=== PATIENT | male | born 1990 | race Two or more races ===

== ENCOUNTER 2022-11-20 04:26 | Emergency (ER) | payer BC ==
[2022-11-20 05:25] LABS: Absolute Lymphocytes (CBC) 2.9 K/uL (0.7-4.9); Hematocrit 40.1 % (39.6-49.0); Lymphocytes % 21.7 % (15.3-44.8); MCV 78.2 fL (80-100); RBC Red Blood Cell Count 5.13 M/uL (4.33-5.43)
[2022-11-20 05:43] LABS: Albumin 3.6 g/dL (3.4-5.0); Bilirubin Total 0.4 mg/dL (0.2-1.0); Potassium 3.3 mmol/L (3.5-5.1); Protein, Total 7.8 g/dL (6.4-8.2)
[2022-11-20] MEDS ORDERED: metroNIDAZOLE 500 MG TABLET ONE (05:45)
[2022-11-20] MEDS ORDERED: CIPROFLOXACIN HCL 500 MG TAB ONE (05:45)
--- NOTE | 2022-11-20 06:54 | ER ---
Nurse's Notes [facility] Name: Corky Yen Age: 32 yrs Sex: Male : 1990 Arrival Date: 11/20/2022 Time: 04:29 Bed 5 Private MD: Diagnosis: Rectal pain and bleeding Presentation: 11/20 04:40 Chief complaint: Patient states: hemorrhoidal pain x 1 week reports bleeding yesterday. Coronavirus screen: Vaccine status: Patient reports receiving the 2nd dose of the covid vaccine. Ebola Screen: Patient negative for fever greater than or equal to 101.5 degrees Fahrenheit, and additional compatible Ebola Virus Disease symptoms. Initial Sepsis Screen: Does the patient meet any 2 criteria? HR > 90 bpm. Does the patient have a suspected source of infection? No. Patient's initial sepsis screen is negative. Risk Assessment: Do you want to hurt yourself or someone else? Patient reports no desire to harm self or others. Onset of symptoms was November 14, 2022. 04:40 Method Of Arrival: Ambulatory 04:40 Acuity: LUCIO 3 kl Triage Assessment: 04:43 General: Appears distressed, uncomfortable, well groomed, well developed, Behavior is kl anxious. Pain: Complains of pain in recal pain Pain currently is 10 out of 10 on a pain scale. at worst was 10 out of 10 on a pain scale. EENT: No deficits noted. No signs and/or symptoms were reported regarding the EENT system. Neuro: No deficits noted. [place] Agitation-Sedation Scale (RASS):. Cardiovascular: No deficits noted. Respiratory: No deficits noted. GI: Reports hemorrhoids. : No deficits noted. No signs and/or symptoms were reported regarding the genitourinary system. Historical: - Allergies: 04:42 Ibuprofen; kl - PMHx: 04:42 PTSD; Bipolar disorder; Anxiety; Migraine; kl - PSHx: 04:42 Cholecystectomy; kl - Immunization history:: Adult Immunizations up to date. - Social history:: Smoking status: Patient denies any tobacco usage or history of. Screenin:[address] [facility] ED Fall Risk Assessment (Adult) History of falling in the last 3 months, kl including since admission No falls in past 3 months (0 pts) Confusion or Disorientation No (0 pts) Intoxicated or Sedated No (0 pts) Impaired Gait No (0 pts) Mobility Assist Device Used No (0 pt) Altered Elimination No (0 pt) Score/Fall Risk Level 0 - 2 = Low Risk Oriented to surroundings, Maintained a safe environment, Educated pt \T\ family on fall prevention, incl call for assistance when getting out of bed. Abuse screen: Denies threats or abuse. Nutritional screening: No deficits noted. Tuberculosis screening: No symptoms or risk factors identified. Assessment: 05:02 General: Appears distressed, uncomfortable, Behavior is anxious. Vital Signs: 04:40 BP 142 / 99; Pulse 114; Resp 18; Temp 100.8; Pulse Ox 96% ; Weight 143.79 kg (M); kl Height 6 ft. 2 in. (187.96 cm); Pain 10/10; 05:44 BP 122 / 67; Pulse 78; Pulse Ox 99% on R/A; kl 06:59 BP 100 / 65; kl 04:40 Body Mass Index 40.70 (143.79 kg, 187.96 cm) ED Course: 04:29 Patient arrived in ED. ag3 04:37 Jerald Rahman MD is Attending Physician. kdr 04:42 Triage completed. kl 05:02 Inserted saline lock: 20 gauge in right antecubital area, using aseptic technique. Blood collected. 05:09 CBC with Diff Sent. kl 05:09 CMP Sent. kl 05:09 Lipase Sent. kl 06:13 CT Abd/Pelvis - IV Contrast Only In Process Unspecified. EDMS 06:51 Davin Licona MD is Referral Physician. kdr 07:10 No provider procedures requiring assistance completed. IV discontinued, intact, kl bleeding controlled, No redness/swelling at site. Pressure dressing applied. 07:10 Arm band placed on. kl 07:10 Patient has correct armband on for positive identification. kl Administered Medications: 05:45 Drug: Flagyl (metroNIDAZOLE) 500 mg Route: PO; aa9 06:05 Follow up: Response: No adverse reaction aa9 06:11 Follow up: Response: No adverse reaction kl 05:45 Drug: Cipro (ciprofloxacin) 500 mg Route: PO; aa9 06:05 Follow up: Response: No adverse reaction aa9 06:11 Follow up: Response: No adverse reaction kl Medication: 07:10 VIS not applicable for this client. Outcome: 06:53 Discharge ordered by . kdr 07:09 Discharged to home ambulatory. gris 07:09 Condition: improved 07:09 Discharge instructions given to patient, Instructed on discharge instructions, follow up and referral plans. medication usage, Demonstrated understanding of instructions, follow-up care, medications, Prescriptions given X 3. 07:10 Patient left the ED. gris Signatures: Dispatcher [employer] EDCristela Montaño RN RN Jerald Paz MD MD kdr Gomez, Alice ag3 Zaira Talamantes, RN RN aa9
--- NOTE | 2022-11-20 06:54 | EDPHYS ---
Physician Documentation [facility] Name: Corky Yen Age: 32 yrs Sex: Male : 1990 Arrival Date: 11/20/2022 Time: 04:29 Bed 5 Private MD: ED Physician Jerald Rahman HPI: 11/20 04:58 This 32 yrs old Unknown Male presents to ER via Ambulatory with complaints of Rectal kdr Bleeding. 04:58 The patient presents to the emergency department with bleeding from the rectum/anus, kdr that is moderate, pain in the rectal area, that is moderate, that is severe. Onset: The symptoms/episode began/occurred 1 week(s) ago. Context: the patient has a known history of hemorrhoids. Modifying factors: The symptoms are alleviated by nothing, The symptoms are aggravated by bowel movement, movement, sitting position. Associate signs and symptoms: Pertinent positives: fever, lower GI bleeding, in toilet bowl, Pertinent negatives: abdominal pain, constipation, diarrhea, dysuria. The patient has had pain and management issues with hemorrhoids for about 10 years. Over the last week he has had pain and yesterday, had what he thought to be foul smelling purulent discharge from his rectum. He has tried various common remedies over the past years without resolution of the issues. He has sought treatment from his PCP in the past but never a surgeon. The patient has not recently seen a physician. Historical: - Allergies: 04:42 Ibuprofen; kl - PMHx: 04:42 PTSD; Bipolar disorder; Anxiety; Migraine; kl - PSHx: 04:42 Cholecystectomy; kl - Immunization history:: Adult Immunizations up to date. - Social history:: Smoking status: Patient denies any tobacco usage or history of. ROS: 04:58 Constitutional: Negative for measured fever, chills, and weight loss, he has had kdr subjective chills and fever with general mailaise for the past week Eyes: Negative for injury, pain, redness, and discharge, Neck: Negative for injury, pain, and swelling, Cardiovascular: Negative for chest pain, palpitations, and edema, Respiratory: Negative for shortness of breath, cough, wheezing, and pleuritic chest pain, Back: Negative for injury and pain, : Negative for injury, bleeding, discharge, and swelling, MS/Extremity: Negative for injury and deformity, Skin: Negative for injury, rash, and discoloration, Neuro: Negative for headache, weakness, numbness, tingling, and seizure activity. Psych: Negative for depression, anxiety, suicide ideation, homicidal ideation, and hallucinations, Allergy/Immunology: Negative for hives, rash, and allergies, Endocrine: Negative for neck swelling, polydipsia, polyuria, polyphagia, and marked weight changes, Hematologic/Lymphatic: Negative for swollen nodes, abnormal bleeding, and unusual bruising. 04:58 Abdomen/GI: Positive for abdominal pain, rectal pain, rectal bleeding, Purulent rectal discharge yesterday. Exam: 05:05 Constitutional: This is a well developed, well nourished patient who is awake, alert, kdr and in no acute distress. Head/Face: Normocephalic, atraumatic. Eyes: Pupils equal round and reactive to light, extra-ocular motions intact. Lids and lashes normal. Conjunctiva and sclera are non-icteric and not injected. Cornea within normal limits. Periorbital areas with no swelling, redness, or edema. Neck: Trachea midline, no thyromegaly or masses palpated, and no cervical lymphadenopathy. Supple, full range of motion without nuchal rigidity, or vertebral point tenderness. No Meningismus. Chest/axilla: Normal chest wall appearance and motion. Nontender with no deformity. No lesions are appreciated. Cardiovascular: Regular rate and rhythm with a normal S1 and S2. No gallops, murmurs, or rubs. Normal PMI, no JVD. No pulse deficits. Respiratory: Lungs have equal breath sounds bilaterally, clear to auscultation and percussion. No rales, rhonchi or wheezes noted. No increased work of breathing, no retractions or nasal flaring. Skin: Warm, dry with normal turgor. Normal color with no rashes, no lesions, and no evidence of cellulitis. MS/ Extremity: Pulses equal, no cyanosis. Neurovascular intact. Full, normal range of motion. Neuro: Awake and alert, GCS 15, oriented to person, place, time, and situation. Cranial nerves II-XII grossly intact. Motor strength 5/5 in all extremities. Sensory grossly intact. Cerebellar exam normal. Normal gait. Psych: Awake, alert, with orientation to person, place and time. Behavior, mood, and affect are within normal limits. 05:05 Abdomen/GI: Inspection: obese Bowel sounds: active, Palpation: nontender, in all quadrants, rebound tenderness, is not appreciated, Rectal exam: hemorrhoid(s), are not appreciated, with pain, There were no visible hemorrhoids externally. he was diffusely tender circumferentially but without clearly noted indurated tissue. Vital Signs: 04:40 BP 142 / 99; Pulse 114; Resp 18; Temp 100.8; Pulse Ox 96% ; Weight 143.79 kg (M); kl Height 6 ft. 2 in. (187.96 cm); Pain 10/10; 05:44 BP 122 / 67; Pulse 78; Pulse Ox 99% on R/A; kl 06:59 BP 100 / 65; kl 04:40 Body Mass Index 40.70 (143.79 kg, 187.96 cm) kl MDM: 06:53 Patient medically screened. kdr 07:57 Data reviewed: vital signs, nurses notes, lab test result(s), radiologic studies. kdr Consideration of Admission/Observation Patient was admitted/placed on observation. Escalation of care including admission/observation considered. Management of patient was discussed with the following: Telephone Quotation Clerk: Monae. I considered the following discharge prescriptions or medication management in the emergency department Medications were administered in the Emergency Department. See MAR. ED course: The patient was discharged in good condition and was happy with the care provided and the plan for discharge and follow-up tomorrow with Dr. Licona. 11/20 04:37 Order name: CBC with Diff; Complete Time: 06:42 kdr 11/20 04:37 Order name: CMP; Complete Time: 06:42 kdr 11/20 04:37 Order name: Lipase; Complete Time: 06:42 kdr 11/20 04:55 Order name: CT Abd/Pelvis - IV Contrast Only kdr 11/20 04:37 Order name: IV Saline Lock; Complete Time: 05:02 kdr 11/20 04:37 Order name: Labs collected and sent; Complete Time: 05:02 kdr Administered Medications: 05:45 Drug: Flagyl (metroNIDAZOLE) 500 mg Route: PO; aa9 06:05 Follow up: Response: No adverse reaction aa9 06:11 Follow up: Response: No adverse reaction 05:45 Drug: Cipro (ciprofloxacin) 500 mg Route: PO; aa9 06:05 Follow up: Response: No adverse reaction aa9 06:11 Follow up: Response: No adverse reaction kl Disposition Summary: 11/20/22 06:53 Discharge Ordered Location: Home kdr Problem: an ongoing problem kdr Symptoms: have improved kdr Condition: Stable kdr Diagnosis - Rectal pain and bleeding kdr Followup: kdr - With: Davin Licona MD - When: Tomorrow - Reason: If symptoms return, Further diagnostic work-up, Recheck today's complaints, Continuance of care, Re-evaluation by your physician Discharge Instructions: - Discharge Summary Sheet kdr Forms: - Medication Reconciliation Form kdr - Thank You Letter kdr - Antibiotic Education kdr - Prescription Opioid Use kdr Prescriptions: - Cipro 500 mg Oral Tablet - take 1 tablet by ORAL route every 12 hours for 10 days; 20 tablet; Refills: 0, kdr Product Selection Permitted - Flagyl 500 mg Oral Tablet - take 1 tablet by ORAL route every 6 hours for 10 days; 40 tablet; Refills: 0, kdr Product Selection Permitted - Tramadol 50 mg Oral Tablet - take 1 tablet by ORAL route every 8 hours as needed; 12 tablet; Refills: 0, kdr Product Selection Permitted - Anusol-HC 25 mg Rectal Suppository - insert 1 suppository by RECTAL route every 12 hours As needed; 20 suppository; kdr Refills: 0, Product Selection Permitted Signatures: Dispatcher [employer] Cristela Morfin, RN Jerald Araujo MD MD kdr Avalos, Aylin RN RN aa9
[2022-11-20 07:33] VITALS: TEMP 100.8
[2022-11-20 07:34] VITALS: O2SAT 99
[2022-11-20 07:35] VITALS: BP 100/65
--- NOTE | 2022-11-20 10:28 | RAD REPORT ---
EXAM DESCRIPTION: CT - Abdomen Pelvis W Contrast - 11/20/2022 6:57 am CLINICAL HISTORY: The patient is 32 years old and is Male; rectal pain, bleeding and purulent discha rge TECHNIQUE: Axial computed tomography images of the abdomen and pelvis with intravenous contrast. S agittal and coronal reformatted images were created and reviewed. This CT exam was performed using one or more of the following dose reduction techniques: automated exposure control, adjustment of t he mA and/or kV according to patient size, and/or use of iterative reconstruction technique. COMPARISON: No relevant prior studies available. FINDINGS: Lung bases: Unremarkable. No mass. No consolidation. ABDOMEN: Liver: Unremarkable. No mass. Gallbladder and bile ducts: Gallbladder is not seen. No ductal dilation. Pancreas: Unremarkable. No mass. No ductal dilation. Spleen: Unremarkable. No splenomegaly. Adrenals: Unremarkable. No mass. Kidneys and ureters: Unremarkable. No solid mass. No hydronephrosis. Stomach and bowel: Unremarkable. No obstruction. No mucosal thickening. PELVIS: Appendix: No findings to suggest acute appendicitis. Bladder: Unremarkable.. Reproductive: Unremarkable as visualized. ABDOMEN and PELVIS: Intraperitoneal space: Unremarkable. No free air. No significant fluid collection. Bones/joints: No acute fracture. No dislocation. Soft tissues: Unremarkable. Vasculature: Unremarkable. No abdominal aortic aneurysm. Lymph nodes: Unremarkable. No enlarged lymph nodes. IMPRESSION: No acute finding in the abdomen/pelvis. Electronically signed by: Lauri Perkins MD 11/20/2022 6:29 AM PLUG MAKING OPERATOR Due to temporary technical issues with the PACS/Fluency reporting system, reports are being signed by the in house radiologists without review as a courtesy to insure prompt reporting. The interpreting radiologist is fully responsible for the content of the report.
== END 2022-11-20 07:10 | disposition home or self-care (01) ==
LOC: ER 04:26
DX: K62.5 Hemorrhage of anus and rectum (principal); Z88.6 Allergy status to analgesic agent
CPT/HCPCS: 85025; 36415; 83690; 80053; 74177; Q9967; 99284

== ENCOUNTER 2022-12-21 08:36 | Emergency (ER) | payer BC ==
--- OUTSIDE RECORDS SUMMARY | 2022-12-21 08:40 | XMS REPORT | Continuity of Care Document ---
:1990 Author Organization [facility] t Address [address] [place] [address] Care Team Providers Name Role Phone SUSAN MICHEL Attending Clinician Unavailable Problems This patient has no known problems. Allergies, Adverse Reactions, Alerts This patient has no known allergies or adverse reactions. Medications This patient has no known medications. Procedures This patient has no known procedures. Encounters Start End Encounter Admission Attending Care Care Encounter Source Date/Time Date/Time Type Type Clinicians Facility Department ID 2022-11-30 2022-11-30 Outpatient REBECCA MICHEL [address] 07:15:00 23:59:00 [facility] Results This patient has no known results.
[2022-12-21 09:26] LABS: Absolute Lymphocytes (CBC) 2.5 K/uL (0.7-4.9); Hematocrit 40.6 % (39.6-49.0); Lymphocytes % 26.2 % (15.3-44.8); MPV 6.8 fL (7.6-11.3); RBC Red Blood Cell Count 5.28 M/uL (4.33-5.43)
[2022-12-21 09:48] LABS: Urine Blood Negative (Negative); Urine Glucose Negative (Negative); Urine Protein Negative (Negative)
[2022-12-21 09:53] LABS: Albumin 3.7 g/dL (3.4-5.0); Bilirubin Total 0.4 mg/dL (0.2-1.0); Potassium 3.8 mmol/L (3.5-5.1); Protein, Total 7.7 g/dL (6.4-8.2)
--- NOTE | 2022-12-21 10:21 | RAD REPORT ---
EXAM DESCRIPTION: CTAbdomen Pelvis W Contrast - 12/21/2022 10:04 am CLINICAL HISTORY: Abdominal pain. ABD PAIN COMPARISON: Abdomen Pelvis W Contrast dated 11/20/2022 TECHNIQUE: Biphasic CT imaging of the abdomen and pelvis was performed with 100 ml non-ionic IV cont rast. All CT scans are performed using dose optimization technique as appropriate and may include automated exposure control or mA/KV adjustment according to patient size. FINDINGS: The lung bases are clear. The liver, spleen, pancreas, adrenal glands and kidneys are within normal limits. Cholecystectomy. No bowel obstruction, free air, free fluid or abscess. The appendix is normal. No evidence of signi ficant lymphadenopathy. No suspicious bony findings. IMPRESSION: No acute intra-abdominal or pelvic finding.
--- NOTE | 2022-12-21 11:06 | EDPHYS ---
Physician Documentation [facility] Name: Corky Yen Age: 32 yrs Sex: Male : 1990 Arrival Date: 12/21/2022 Time: 08:39 Bed DIS2 Private MD: ED Physician Henrique Ko HPI: 12/21 11:02 This 32 yrs old Male presents to ER via Ambulatory with complaints of Abdominal Pain. sp3 11:02 32-year-old male history of bipolar disease, PTSD, migraine history, anxiety, status sp3 postcholecystectomy presents to the ED with chief complaint right-sided abdominal pain hours after taking medications with orange juice after drinking a large milkshake. Patient's symptoms are mainly improved however he came in for general precautions. He denies any nausea, vomiting, diarrhea, fever, URI symptoms, chest pain, shortness of breath, skin symptoms, syncope, near syncope, focal neurodeficit, or any other symptoms at this time.. Historical: - Allergies: 09:02 Ibuprofen; jl7 - Home Meds: 09:02 lamotrigine 200 mg oral tab 1 tab once daily [Active]; amitriptyline 50 mg Oral tab 1 jl7 tab once daily [Active]; lithium carbonate 600 mg Oral cap [Active]; levocetirizine 5 mg oral tab 1 tab once daily [Active]; Sumatriptan Sub-Q [Active]; - PMHx: 09:02 Anxiety; Bipolar disorder; Migraine; PTSD; jl7 - PSHx: 09:02 Cholecystectomy; jl7 - Immunization history:: Client reports receiving the 2nd dose of the Covid vaccine. - Social history:: Smoking status: Patient denies any tobacco usage or history of. ROS: 11:03 Constitutional: Negative for fever, chills, and weight loss, Eyes: Negative for injury, sp3 pain, redness, and discharge, ENT: Negative for injury, pain, and discharge, Neck: Negative for injury, pain, and swelling, Cardiovascular: Negative for chest pain, palpitations, and edema, Respiratory: Negative for shortness of breath, cough, wheezing, and pleuritic chest pain, Back: Negative for injury and pain, MS/Extremity: Negative for injury and deformity, Skin: Negative for injury, rash, and discoloration, Neuro: Negative for headache, weakness, numbness, tingling, and seizure, Psych: Negative for depression, anxiety, suicide ideation, homicidal ideation, and hallucinations, Allergy/Immunology: Negative for hives, rash, and allergies, Endocrine: Negative for neck swelling, polydipsia, polyuria, polyphagia, and marked weight changes. 11:03 All other systems are negative. Exam: 11:04 Constitutional: This is a well developed, well nourished patient who is awake, alert, sp3 and in no acute distress. Head/Face: Normocephalic, atraumatic. Eyes: Pupils equal round and reactive to light, extra-ocular motions intact. Lids and lashes normal. Conjunctiva and sclera are non-icteric and not injected. Cornea within normal limits. Periorbital areas with no swelling, redness, or edema. Neck: Trachea midline, no thyromegaly or masses palpated, and no cervical lymphadenopathy. Supple, full range of motion without nuchal rigidity, or vertebral point tenderness. No Meningismus. Chest/axilla: Normal chest wall appearance and motion. Nontender with no deformity. No lesions are appreciated. Cardiovascular: Regular rate and rhythm with a normal S1 and S2. No gallops, murmurs, or rubs. Normal PMI, no JVD. No pulse deficits. Respiratory: Lungs have equal breath sounds bilaterally, clear to auscultation and percussion. No rales, rhonchi or wheezes noted. No increased work of breathing, no retractions or nasal flaring. Abdomen/GI: Soft, non-tender, with normal bowel sounds. No distension or tympany. No guarding or rebound. No evidence of tenderness throughout. Back: No spinal tenderness. No costovertebral tenderness. Full range of motion. Skin: Warm, dry with normal turgor. Normal color with no rashes, no lesions, and no evidence of cellulitis. MS/ Extremity: Pulses equal, no cyanosis. Neurovascular intact. Full, normal range of motion. Neuro: Awake and alert, GCS 15, oriented to person, place, time, and situation. Cranial nerves II-XII grossly intact. Motor strength 5/5 in all extremities. Sensory grossly intact. Cerebellar exam normal. Normal gait. Vital Signs: 09:00 BP 142 / 89; Pulse 89; Resp 17; Temp 97.9; Pulse Ox 99% on R/A; Weight 145.15 kg; jl7 Height 6 ft. 2 in. (187.96 cm); Pain 8/10; 09:00 Body Mass Index 41.09 (145.15 kg, 187.96 cm) jl7 MDM: 09:25 Patient medically screened. sp3 11:04 Data reviewed: vital signs, nurses notes, lab test result(s), radiologic studies. ED sp3 course: 32-year-old male with right-sided abdominal pain. Differential diagnosis includes appendicitis, gastritis, colitis, kidney stone, UTI, among others including functional abdominal pain. Patient is currently pain-free. CT scan demonstrates no significant abnormality laboratory values are within normal limits. Urine is also normal. Given this normal work-up and patient's resolution of symptoms, we will safely discharge patient home with general precautions, bland diet and follow-up with PCP. Patient acknowledges and is thankful for his care.. 12/21 09:08 Order name: CBC with Diff; Complete Time: 10:44 sp3 12/21 09:08 Order name: CMP; Complete Time: 10:44 sp3 12/21 09:08 Order name: Lipase; Complete Time: 10:44 sp3 12/21 09:08 Order name: CT Abd/Pelvis - IV Contrast Only; Complete Time: 10:44 sp3 12/21 09:08 Order name: IV Saline Lock; Complete Time: 09:33 sp3 12/21 09:48 Order name: Urine Dipstick-Ancillary; Complete Time: 10:44 EDMS 12/21 09:08 Order name: Labs collected and sent; Complete Time: 09:33 sp3 12/21 09:08 Order name: Urine Dipstick-Ancillary (obtain specimen); Complete Time: 09:54 sp3 Administered Medications: No medications were administered Disposition Summary: 12/21/22 11:05 Discharge Ordered Location: Home sp3 Condition: Stable sp3 Diagnosis - Abdominal pain, unspecified sp3 Followup: sp3 - With: Private Physician - When: Upon discharge from the Emergency Department - Reason: If symptoms return Discharge Instructions: - Discharge Summary Sheet sp3 - Abdominal Pain, Adult sp3 Forms: - Medication Reconciliation Form sp3 - Thank You Letter sp3 - Antibiotic Education sp3 - Prescription Opioid Use sp3 Signatures: Dispatcher [employer] Brissa Villatoro RN RN jl7 Henrique Ko, MD sp3
--- NOTE | 2022-12-21 11:06 | ER ---
Nurse's Notes [facility] Name: Corky Yen Age: 32 yrs Sex: Male : 1990 Arrival Date: 12/21/2022 Time: 08:39 Bed DIS2 Private MD: Diagnosis: Abdominal pain, unspecified Presentation: 12/21 09:00 Chief complaint: Patient states: RUQ pain after bending over sink last night and felt a jl7 pop; reports nausea, denies diarrhea, possible constipation unknown last BM; also severe migraine since last night. Coronavirus screen: Vaccine status: Patient reports receiving the 2nd dose of the covid vaccine. At this time, the client does not indicate any symptoms associated with coronavirus-19. Ebola Screen: No symptoms or risks identified at this time. Initial Sepsis Screen: Does the patient meet any 2 criteria? No. Patient's initial sepsis screen is negative. Does the patient have a suspected source of infection? No. Patient's initial sepsis screen is negative. Risk Assessment: Do you want to hurt yourself or someone else? Patient reports no desire to harm self or others. Onset of symptoms was December 20, 2022. 09:00 Method Of Arrival: Ambulatory jl7 09:00 Acuity: LUCIO 3 jl7 Triage Assessment: 09:02 General: Appears in no apparent distress. uncomfortable, Behavior is cooperative, jl7 anxious. Pain: Complains of pain in right upper quadrant Pain currently is 8 out of 10 on a pain scale. GI: Reports constipation, nausea, Patient currently denies diarrhea, vomiting. Historical: - Allergies: 09: Ibuprofen; jl7 - Home Meds: 09: lamotrigine 200 mg oral tab 1 tab once daily [Active]; amitriptyline 50 mg Oral tab 1 jl7 tab once daily [Active]; lithium carbonate 600 mg Oral cap [Active]; levocetirizine 5 mg oral tab 1 tab once daily [Active]; Sumatriptan Sub-Q [Active]; - PMHx: 09:02 Anxiety; Bipolar disorder; Migraine; PTSD; jl7 - PSHx: 09:02 Cholecystectomy; jl7 - Immunization history:: Client reports receiving the 2nd dose of the Covid vaccine. - Social history:: Smoking status: Patient denies any tobacco usage or history of. Screenin:31 [facility] ED Fall Risk Assessment (Adult) History of falling in the last 3 months, ss including since admission No falls in past 3 months (0 pts). Abuse screen: Denies threats or abuse. Denies injuries from another. Nutritional screening: No deficits noted. Tuberculosis screening: Never had TB. Assessment: 11:31 General: Appears in no apparent distress. comfortable, Behavior is calm, cooperative. ss Neuro: Level of Consciousness is awake, alert, obeys commands. Respiratory: Airway is patent Respiratory effort is even, unlabored, Respiratory pattern is regular, symmetrical. Derm: Skin is intact, is healthy with good turgor, Skin is pink, warm \T\ dry. normal. Vital Signs: 09:00 BP 142 / 89; Pulse 89; Resp 17; Temp 97.9; Pulse Ox 99% on R/A; Weight 145.15 kg; jl7 Height 6 ft. 2 in. (187.96 cm); Pain 8/10; 09:00 Body Mass Index 41.09 (145.15 kg, 187.96 cm) jl7 ED Course: 08:39 Patient arrived in ED. rg4 08:43 Henrique Ko MD is Attending Physician. sp3 09:02 Triage completed. jl7 09:02 Arm band placed on right wrist. jl7 09:35 Initial lab(s) drawn, by ED staff, sent to lab. Inserted saline lock: 20 gauge in right jl7 Blood collected. Inserted by Jay MONSIVAIS. 10:08 CT Abd/Pelvis - IV Contrast Only In Process Unspecified. EDNC 11:10 Ling Chu, NICOLÁS is Primary Nurse. ss 11:31 Patient has correct armband on for positive identification. ss 11:31 No provider procedures requiring assistance completed. Patient did not have IV access ss during this emergency room visit. Administered Medications: No medications were administered Medication: 11:31 VIS not applicable for this client. ss Outcome: 11:05 Discharge ordered by . sp3 11:31 Discharged to home ambulatory. ss 11:31 Condition: good 11:31 Discharge instructions given to patient, Instructed on discharge instructions, follow up and referral plans. Demonstrated understanding of instructions, follow-up care. 11:32 Patient left the ED. ss Signatures: Dispatcher [employer] EDNC Ling Chu RN RN Ariadna Zepeda rg4 Brissa Bhatia RN RN jl7 Henrique Ko, MD sp3
[2022-12-21 11:49] VITALS: BP 142/89; TEMP 97.9; O2SAT 99
== END 2022-12-21 11:32 | disposition home or self-care (01) ==
LOC: ER 08:36
DX: R10.31 Right lower quadrant pain (principal); F31.9 Bipolar disorder, unspecified; Z88.6 Allergy status to analgesic agent
CPT/HCPCS: 85025; 36415; 81003; 83690; 80053; 74177; 99283; Q9967

== ENCOUNTER 2024-03-29 14:44 | Emergency (ER) | payer BC ==
--- OUTSIDE RECORDS SUMMARY | 2024-03-29 14:48 | XMS REPORT | Continuity of Care Document ---
Author Name Unknown Address [address] [place] [address] Larry. [address] [place], [place] [id number] [facility] thconnect Address [address] [facility]. [address] [place] [address] Care Team Providers Care Cash Register Operator Name Role Phone SUSAN MICHEL Attending Clinician Unava ilable Encounters Start Date/Time End Date/Time Encounter Type Admission Type Attending Clinicians Care Facility Care Department Encounter ID Source 2022-11-30 07:15:00 2022-11-30 23:59:00 Outpatient SUS[address] MIC[address]
[2024-03-29] MEDS ORDERED: CEFTRIAXONE 1000 MG/VIAL ONE ×2 (15:10→15:26)
[2024-03-29] MEDS ORDERED: dexAMETHasone 10 MG/ML VIAL ONE (15:10)
[2024-03-29] MEDS ORDERED: LIDOCAINE 1% MPF 2 ML AMPULE ONE (15:10)
[2024-03-29] MEDS ORDERED: AMOX/K CLAV 875 MG TAB ONE (15:12)
[2024-03-29] MEDS ORDERED: NA CHLORIDE 0.9% 1,000 ML ONE (15:26)
[2024-03-29 15:53] LABS: SARS-CoV-2 Antigen CONTROL BLUE LINE VIS/BG OK; SARS-CoV-2 Antigen Rapid Res Negative (Negative)
[2024-03-29 16:27] LABS: Absolute Basophils 0.1 K/uL (0-0.5); Absolute Eosinophils 0.2 K/uL (0-0.5); Absolute Lymphocytes (CBC) 2.2 K/uL (0.7-4.9); Absolute Monocytes 0.5 K/uL (0.1-1.3); Absolute Neutrophil 7.1 K/uL (1.8-8.0); Basophils % 0.9 % (0-1.3); Hematocrit 39.8 % (39.6-49.0); Hemoglobin 12.9 g/dL (13.6-17.9); Lymphocytes % 22.1 % (15.3-44.8); MCH 25.1 pg (27.0-35.0); MCHC 32.5 g/dL (32.0-36.0); MCV 77.1 fL (80-100); MPV 7.2 fL (7.6-11.3); Nucleated Red Blood Cells % 0.1 % (0-0); Platelets 425 thou/uL (152-406); RBC Red Blood Cell Count 5.17 M/uL (4.33-5.43); Red Cell Distribution Width 15.1 % (12.1-15.2)
[2024-03-29 16:38] LABS: Albumin 3.3 g/dL (3.4-5.0); Albumin/Globulin Ratio 0.7 (1.1-1.8); Anion Gap 9.6 mEq/L (5.0-15.0); Bilirubin Total 0.3 mg/dL (0.2-1.0); Globulin 4.6 g/dL (2.3-3.5); Potassium 3.6 mEq/L (3.5-5.1); Protein, Total 7.9 g/dL (6.4-8.2)
--- NOTE | 2024-03-29 17:15 | RAD REPORT ---
EXAM DESCRIPTION: CT - Soft Tissue Neck W/Contr CLINICAL HISTORY: SWELLING COMPARISON: No comparisons TECHNIQUE All CT scans are performed using dose optimization technique as appropriate and may includ e automated exposure control or mA/KV adjustment according to patient size. FINDINGS: Nasopharyngeal tissues are normal in appearance. Fossa Rosenmller are normal. Enlarged uvula which is edematous. Generalized tonsillar hypertrophy. The airway is patent. No fluid collections identified. No prevertebral or parapharyngeal edema. Epiglottis and aryepiglottic folds are normal. Piriform sinuses are well aerated. The vocal cords are normal in appearance. Salivary glands are normal in appearance. Upper lung palomino are clear. Included intracranial contents are unremarkable. IMPRESSION: Tonsillar hypertrophy and enlarged uvula without fluid collection or significant airway compromise.
--- NOTE | 2024-03-29 18:29 | ER ---
Nurse's Notes [facility] Name: Corky Yen Age: 34 yrs Sex: Male : 1990 Arrival Date: 03/29/2024 Time: 14:44 Bed 12 Private MD: Diagnosis: Acute pharyngitis due to other specified organism;Acute pharyngitis, unspecified-ACUTE UVELITIS;Influenza due to other identified influenza virus with pneumonia-INFLUENZA B Presentation: 03/29 14:53 Chief complaint: Patient states: "I've had a throat infection for the last month and aa5 I've been on multiple antibiotics and today my uvula is swollen". 14:53 Coronavirus screen: sore throat. Ebola Screen: Patient denies travel to an [facility] Ebola-affected area in the 21 days before illness onset. Initial Sepsis Screen: Does the patient meet any 2 criteria? No. Patient's initial sepsis screen is negative. Does the patient have a suspected source of infection? No. Patient's initial sepsis screen is negative. Risk Assessment: Do you want to hurt yourself or someone else? Patient reports no desire to harm self or others. Onset of symptoms was 2023. 14:53 Acuity: LUCIO 3 aa5 14:53 Method Of Arrival: Ambulatory aa5 Historical: - Allergies: 14:54 Ibuprofen; aa5 - PMHx: 14:54 Anxiety; Bipolar disorder; Migraine; PTSD; aa5 - PSHx: 14:54 Cholecystectomy; aa5 - Immunization history:: Adult Immunizations up to date. - Infectious Disease History:: Denies. - Social history:: Smoking status: Patient denies any tobacco usage or history of. Screenin:02 [facility] ED Fall Risk Assessment (Adult) History of falling in the last 3 months, as6 including since admission No falls in past 3 months (0 pts) Confusion or Disorientation No (0 pts) Intoxicated or Sedated No (0 pts) Impaired Gait No (0 pts) Mobility Assist Device Used No (0 pt) Altered Elimination No (0 pt) Score/Fall Risk Level 0 - 2 = Low Risk Oriented to surroundings, Maintained a safe environment, Educated pt \\T\\ family on fall prevention, incl call for assistance when getting out of bed, Assessed \\T\\ reinforced patient's understanding of fall precautions. Abuse screen: Denies threats or abuse. Denies injuries from another. Nutritional screening: No deficits noted. Tuberculosis screening: No symptoms or risk factors identified. Assessment: 15:20 General: Appears in no apparent distress. Behavior is calm, cooperative. Pain: as6 Complains of pain in throat Quality of pain is described as burning. Neuro: Level of Consciousness is awake, alert, obeys commands, Oriented to person, place, time, situation. Cardiovascular: Capillary refill < 3 seconds Patient's skin is warm and dry. Respiratory: Airway is patent Trachea midline Respiratory effort is even, unlabored, Respiratory pattern is regular, symmetrical. GI: No deficits noted. No signs and/or symptoms were reported involving the gastrointestinal system. : No deficits noted. No signs and/or symptoms were reported regarding the genitourinary system. EENT: Throat enlarged uvula. Reports nasal congestion nasal discharge. Derm: Skin is intact, is healthy with good turgor. Musculoskeletal: Circulation, motion, and sensation intact. 18:26 Reassessment: Patient appears in no apparent distress at this time. Patient and/or as6 family updated on plan of care and expected duration. Pain level reassessed. Patient is alert, oriented x 3, equal unlabored respirations, skin warm/dry/pink. Patient states feeling better. Vital Signs: 14:53 BP 141 / 87; Pulse 94; Resp 20 S; Temp 98.3(O); Pulse Ox 98% on R/A; Weight 149.69 kg aa5 (R); Height 6 ft. 2 in. (R); 16:00 BP 135 / 88; Pulse 84; Resp 15 S; Pulse Ox 97% on R/A; as6 17:00 BP 132 / 92; Pulse 83; Resp 17 S; Pulse Ox 98% on R/A; as6 18:27 BP 133 / 93; Pulse 85; Resp 16 S; Pulse Ox 100% on R/A; as6 14:53 Body Mass Index 42.37 (149.69 kg, 187.96 cm) aa5 ED Course: 14:48 Patient arrived in ED. ts1 14:53 Arm band placed on. aa5 14:55 Triage completed. aa5 14:56 Mike King, NICOLÁS is Primary Nurse. as6 15:01 Balta Maldonado MD is Attending Physician. gurvinder 16:12 CBC with Diff Sent. as6 16:12 Comprehensive Metabolic Panel Sent. as6 16:14 Inserted saline lock: 20 gauge in right antecubital area, using aseptic technique. as6 Blood collected. 16:29 Bed in low position. Call light in reach. as6 17:02 CT Soft Tissue Neck W/contr In Process Unspecified. EDMS 18:27 Milady Cosby MD is Referral Physician. [facility] 18:44 Provided Education on: rx teaching, follow up with ENT. as6 18:45 No provider procedures requiring assistance completed. IV discontinued, intact, as6 bleeding controlled, No redness/swelling at site. Pressure dressing applied. Administered Medications: 15:14 CANCELLED (Duplicate Order): dexamethasone 10 mg IM once gurvinder 15:14 CANCELLED (Duplicate Order): rocephin (ceftriaxone)1 grams IM once gurvinder 15:22 Drug: Amoxicillin-Clavulanate PO 875 mg PO once Route: PO; as6 18:24 Follow up: Response: No adverse reaction as6 15:22 Drug: Dexamethasone IM 10 mg IM once Route: IM; Site: right deltoid; as6 18:25 Follow up: Response: No adverse reaction as6 15:22 Drug: Rocephin (cefTRIAXone) IM 1 grams IM once Route: IM; Site: right vastus lateralis;as6 18:25 Follow up: Response: No adverse reaction as6 15:23 CANCELLED (Duplicate Order): rocephin2 grams IV at per protocol once; Given slow IV gruvinder push per pharmarcy instructions 15:23 CANCELLED (Duplicate Order): Decadron - [id number] mg IVP once [facility] 15:52 Drug: NS 0.9% IV 1000 ml IV at 1 bolus Per protocol; 1000 mL bolus Route: IV; Rate: 1 as6 bolus; Site: right antecubital; 18:24 Follow up: Response: No adverse reaction; IV Status: Completed infusion; IV Intake: as6 1000ml 15:52 Drug: Rocephin IV 1 grams IV at per protocol once; Given slow IV push per pharmacy as6 instructions Route: IV; Rate: per protocol; Site: right antecubital; 18:25 Follow up: Response: No adverse reaction; IV Status: Completed infusion; IV Intake: 24teit7 18:44 Drug: Oseltamivir PO 75 mg PO once Route: PO; as6 18:44 Follow up: Response: Medication administered at discharge. as6 18:44 Drug: AZITHromycin PO 1 grams PO once Route: PO; as6 18:44 Follow up: Response: Medication administered at discharge. as6 Medication: 16:29 VIS not applicable for this client. as6 Intake: 18:24 IV: 1000ml; Total: 1000ml. as6 18:25 IV: 10ml; Total: 1010ml. as6 Outcome: 18:28 Discharge ordered by . gurvinder 18:45 Discharged to home ambulatory, as 18:45 Condition: stable 18:45 Discharge instructions given to patient, Instructed on discharge instructions, follow up and referral plans. medication usage, Demonstrated understanding of instructions, follow-up care, medications, Prescriptions given X 5 18:45 Patient left the ED. as6 Signatures: Dispatcher [employer] EDMS Balta Maldonado MD MD cha Calderon, Audri, RN RN aa5 Mike King, RN RN as6 Tory Cruz, PAS PAS ts1
--- NOTE | 2024-03-29 18:29 | EDPHYS ---
Physician Documentation [facility] Name: Corky Yen Age: 34 yrs Sex: Male : 1990 Arrival Date: 03/29/2024 Time: 14:44 Bed 12 Private MD: ED Physician Balta Maldonado HPI: 03/29 18:23 This 34 yrs old [place] Male presents to ER via Ambulatory with complaints of Sore gurvinder Throat - swollen uvula. 18:23 The patient presents with sore throat. The patient describes throat pain as constant, gurvinder dry, raw. Onset: The symptoms/episode began/occurred 21 day(s) ago. Severity of symptoms: At their worst the symptoms were moderate, in the emergency department the symptoms are unchanged. Modifying factors: The symptoms are alleviated by nothing, the symptoms are aggravated by swallowing, Patient's oral intake status: good. Associated signs and symptoms: The patient has no apparent associated signs or symptoms. The patient has experienced similar episodes in the past, multiple times. Historical: - Allergies: 14:54 Ibuprofen; aa5 - PMHx: 14:54 Anxiety; Bipolar disorder; Migraine; PTSD; aa5 - PSHx: 14:54 Cholecystectomy; aa5 - Immunization history:: Adult Immunizations up to date. - Infectious Disease History:: Denies. - Social history:: Smoking status: Patient denies any tobacco usage or history of. ROS: 18:23 Constitutional: Negative for fever, chills, and weight loss, Eyes: Negative for injury, gurvinder pain, redness, and discharge, Neck: Negative for injury, pain, and swelling, Cardiovascular: Negative for chest pain, palpitations, and edema, Respiratory: Negative for shortness of breath, cough, wheezing, and pleuritic chest pain, Abdomen/GI: Negative for abdominal pain, nausea, vomiting, diarrhea, and constipation, Back: Negative for injury and pain, : Negative for injury, bleeding, discharge, and swelling, MS/Extremity: Negative for injury and deformity, Skin: Negative for injury, rash, and discoloration, Neuro: Negative for headache, weakness, numbness, tingling, and seizure, Psych: Negative for depression, anxiety, suicide ideation, homicidal ideation, and hallucinations, Allergy/Immunology: Negative for hives, rash, and allergies, Endocrine: Negative for neck swelling, polydipsia, polyuria, polyphagia, and marked weight changes, Hematologic/Lymphatic: Negative for swollen nodes, abnormal bleeding, and unusual bruising, Exam: 18:24 Constitutional: This is a well developed, well nourished patient who is awake, alert, gurvinder and in no acute distress. Head/Face: Normocephalic, atraumatic. Eyes: Pupils equal round and reactive to light, extra-ocular motions intact. Lids and lashes normal. Conjunctiva and sclera are non-icteric and not injected. Cornea within normal limits. Periorbital areas with no swelling, redness, or edema. Neck: Trachea midline, no thyromegaly or masses palpated, and no cervical lymphadenopathy. Supple, full range of motion without nuchal rigidity, or vertebral point tenderness. No Meningismus. Chest/axilla: Normal chest wall appearance and motion. Nontender with no deformity. No lesions are appreciated. Cardiovascular: Regular rate and rhythm with a normal S1 and S2. No gallops, murmurs, or rubs. Normal PMI, no JVD. No pulse deficits. Respiratory: Lungs have equal breath sounds bilaterally, clear to auscultation and percussion. No rales, rhonchi or wheezes noted. No increased work of breathing, no retractions or nasal flaring. Abdomen/GI: Soft, non-tender, with normal bowel sounds. No distension or tympany. No guarding or rebound. No evidence of tenderness throughout. Back: No spinal tenderness. No costovertebral tenderness. Full range of motion. Male : Normal genitalia with no discharge or lesions. Skin: Warm, dry with normal turgor. Normal color with no rashes, no lesions, and no evidence of cellulitis. MS/ Extremity: Pulses equal, no cyanosis. Neurovascular intact. Full, normal range of motion. Neuro: Awake and alert, GCS 15, oriented to person, place, time, and situation. Cranial nerves II-XII grossly intact. Motor strength 5/5 in all extremities. Sensory grossly intact. Cerebellar exam normal. Normal gait. Psych: Awake, alert, with orientation to person, place and time. Behavior, mood, and affect are within normal limits. 18:24 ENT: Posterior pharynx: Tonsils: bilaterally enlarged, with erythema, Uvula: normal, midline, edematous, erythema, swelling, that is moderate, erythema, that is moderate, exudate, is not appreciated, peritonsillar mass, is not appreciated, pooling of secretions, is not appreciated, Voice: is normal, 18:24 Musculoskeletal/extremity: DVT Exam: No signs of deep vein thrombosis. no pain, no swelling, no tenderness, negative Homans' sign noted on exam, no appreciated bluish discoloration, no erythema, no increased warmth, Vital Signs: 14:53 BP 141 / 87; Pulse 94; Resp 20 S; Temp 98.3(O); Pulse Ox 98% on R/A; Weight 149.69 kg aa5 (R); Height 6 ft. 2 in. (R); 16:00 BP 135 / 88; Pulse 84; Resp 15 S; Pulse Ox 97% on R/A; as6 17:00 BP 132 / 92; Pulse 83; Resp 17 S; Pulse Ox 98% on R/A; as6 18:27 BP 133 / 93; Pulse 85; Resp 16 S; Pulse Ox 100% on R/A; as6 14:53 Body Mass Index 42.37 (149.69 kg, 187.96 cm) aa5 MDM: 15:01 Patient medically screened. [facility] 18:25 Differential diagnosis: chemical burn, cocksackie virus, echovirus infection, gurvinder epiglottitis, erythema multiforme, gingivostomatitis, group A strep tonsillitis, influenza, laryngitis, peritonsillar abscess chlamydia pharyngitis, neisseria gonorrheoeae pharangitis, Mycoplasma Pharyngitis pharyngitis, retropharyngeal abcess tonsillitis, tracheobronchitis, upper respiratory infection, uvulitis, viral syndrome. Data reviewed: vital signs, nurses notes, lab test result(s), radiologic studies, CT scan. Consideration of Admission/Observation Escalation of care including admission/observation considered. I considered the following discharge prescriptions or medication management in the emergency department Medications were administered in the Emergency Department. See MAR. Independent interpretation of the following test(s) in the Emergency Department CT Scan: My interpretation is ct soft tissue. Test considered but Not performed: MRI: no mri soft tissue. Historians other than the Patient: pt well informed. Care significantly affected by the following chronic conditions: migraine, bipolar, ptsd, anxiety. 03/29 15:03 Order name: Strep [facility] 03/29 15:03 Order name: SARS RAPID; Complete Time: 18:20 [facility] 03/29 15:03 Order name: Flu; Complete Time: 18:20 [facility] 03/29 15:37 Order name: CBC with Diff; Complete Time: 18:20 [facility] 03/29 15:37 Order name: Comprehensive Metabolic Panel; Complete Time: 18:20 [facility] 03/29 15:54 Order name: Throat Culture EDMS 03/29 15:15 Order name: CT Soft Tissue Neck W/contr; Complete Time: 18:20 gurvinder Administered Medications: 15:14 CANCELLED (Duplicate Order): dexamethasone 10 mg IM once gurvinder 15:14 CANCELLED (Duplicate Order): rocephin (ceftriaxone)1 grams IM once gurvinder 15:22 Drug: Amoxicillin-Clavulanate PO 875 mg PO once Route: PO; as6 18:24 Follow up: Response: No adverse reaction as6 15:22 Drug: Dexamethasone IM 10 mg IM once Route: IM; Site: right deltoid; as6 18:25 Follow up: Response: No adverse reaction as6 15:22 Drug: Rocephin (cefTRIAXone) IM 1 grams IM once Route: IM; Site: right vastus lateralis;as6 18:25 Follow up: Response: No adverse reaction as6 15:23 CANCELLED (Duplicate Order): rocephin2 grams IV at per protocol once; Given slow IV gurvinder push per pharmarcy instructions 15:23 CANCELLED (Duplicate Order): Decadron - [id number] mg IVP once gurvinder 15:52 Drug: NS 0.9% IV 1000 ml IV at 1 bolus Per protocol; 1000 mL bolus Route: IV; Rate: 1 as6 bolus; Site: right antecubital; 18:24 Follow up: Response: No adverse reaction; IV Status: Completed infusion; IV Intake: as6 1000ml 15:52 Drug: Rocephin IV 1 grams IV at per protocol once; Given slow IV push per pharmacy as6 instructions Route: IV; Rate: per protocol; Site: right antecubital; 18:25 Follow up: Response: No adverse reaction; IV Status: Completed infusion; IV Intake: [id number] 18:44 Drug: Oseltamivir PO 75 mg PO once Route: PO; as6 18:44 Follow up: Response: Medication administered at discharge. as6 18:44 Drug: AZITHromycin PO 1 grams PO once Route: PO; as6 18:44 Follow up: Response: Medication administered at discharge. as6 Disposition Summary: 03/29/24 18:28 Discharge Ordered Notes: Location: Home [facility] Problem: new [facility] Symptoms: have improved [facility] Condition: Stable [facility] Diagnosis - Acute pharyngitis due to other specified organism gurvinder - Acute pharyngitis, unspecified - ACUTE UVELITIS [facility] - Influenza due to other identified influenza virus with pneumonia - INFLUENZA B [facility] Followup: [facility] - With: Private Physician - When: 2 - 3 days - Reason: Recheck today's complaints, Continuance of care, Re-evaluation by your physician Followup: [facility] - With: Milady Cosby MD - When: 2 - 3 days - Reason: Recheck today's complaints, Re-evaluation by your physician Discharge Instructions: - Discharge Summary Sheet [facility] - Influenza, Adult [facility] - Pharyngitis [facility] - Sore Throat [facility] - Strep Throat, Adult [facility] - Pharyngitis, [id number]-[id number] [facility] - Influenza, Adult, [id number] [facility] - Sore Throat, Vquq-[id number]-[id number] [facility] Forms: - Medication Reconciliation Form [facility] - Antibiotic Education [facility] - Prescription Opioid Use [facility] - Patient Portal Instructions [facility] - Leadership Thank You Letter [facility] Prescriptions: - dexamethasone 4 mg Oral tablet - take 1 tablet ORAL route daily; 5 tablet; Refills: 0, Product Selection [facility] Permitted - Augmentin 875-125 mg Oral Tablet - take 1 tablet ORAL route every 12 hours for 10 days; 20 tablet; Refills: 0, [facility] Product Selection Permitted - Carolina-D 12 Hour 60-120 mg Oral Tablet Sustained Release 12 hr - take 1 tablet ORAL route every 12 hours As needed; 20 tablet; Refills: 0, [facility] Product Selection Permitted - Tessalon Perles 100 mg Oral capsule - take 2 capsule ORAL route every 8 hours As needed; 30 capsule; Refills: 0, [facility] Product Selection Permitted - Tamiflu 75 mg Oral capsule - take 1 tablet ORAL route every 12 hours for 5 days; 10 tablet; Refills: 0, [facility] Product Selection Permitted Signatures: Dispatcher [employer] Balta Correa MD MD cha Calderon, Audri, RN RN aa5 Mike King RN RN as6 Corrections: (The following items were deleted from the chart) 15:03 15:03 Group A Streptococcus Rapid Sc+BA.LAB.BRZ ordered. [place] EDMS 15: 15:03 SARS-COV-2 Antigen Rapid+I.LAB.BRZ ordered. EDMS EDMS 15: 15:03 Influenza Screen (A \T\ B)+BA.LAB.BRZ ordered. EDMS EDMS 15: 15:03 Dexamethasone IM 10 mg IM once ordered. [facility] 15: 15:03 Rocephin (cefTRIAXone) IM 1 grams IM once ordered. [facility] 15:15 Rocephin IV 2 grams IV at per protocol once; Given slow IV push per pharmarcy [facility] instructions ordered. [facility] 15:15 Decadron - Dexamethasone IVP 10 mg IVP once ordered. [facility]
[2024-03-29] MEDS ORDERED: OSELTAMIVIR 75 MG CAP PO ONE (18:34)
[2024-03-29] MEDS ORDERED: AZITHROMYCIN 250 MG TAB ONE (18:34)
[2024-03-29 19:02] VITALS: BP 133/93; TEMP 98.3; O2SAT 100
== END 2024-03-29 18:45 | disposition home or self-care (01) ==
LOC: ER 14:44
DX: J10.01 Influenza due to other identified influenza virus with the same other identified influenza virus pneumonia (principal); K12.2 Cellulitis and abscess of mouth; Z11.52 Encounter for screening for COVID-19; Z88.6 Allergy status to analgesic agent
CPT/HCPCS: 96365; 87070; 85025; 36415; 87081; 80053; 87804 ×2; 70491; 96372; 99284; 96366; 87811; Q9967; J1100; J7030; J0696 ×2